=== PATIENT | female | born 2000 | race Caucasian/White ===

== ENCOUNTER 2022-08-24 11:43 | Emergency (ER) | payer OTHER ==
[~2022-08-24] VITALS: Ht 160 cm; Wt 70.3 kg
[2022-08-24 14:34] LABS: Source, Urine Clean Catch
[2022-08-24 14:37] LABS: BASOPHILS ABSOLUTE AUTO 0.04 K/mm3 (0.00-0.23); BASOPHILS PERCENT AUTO 1 % (0-2); EOSINOPHILS PERCENT AUTO 2 % (0-6); Hematocrit 38.9 % (33.0-51.0); Hemoglobin 13.1 g/dL (11.5-16.0); IMMATURE GRAN ABSOLUTE AUTO 0.02 K/mm3 (0.00-0.10); IMMATURE GRAN PERCENT AUTO 0 % (0-1); LYMPHOCYTES ABSOLUTE AUTO 2.16 K/mm3 (0.84-5.20); LYMPHOCYTES PERCENT AUTO 25 % (21-46); MONOCYTES ABSOLUTE AUTO 0.91 K/mm3 (0.16-1.47); MONOCYTES PERCENT AUTO 11 % (4-13); Mean Corpuscular HGB 30.7 pg (26.0-34.0); Mean Corpuscular HGB Conc 33.7 g/dL (31.5-36.5); Mean Corpuscular Volume 91 fL (80-100); Mean Platelet Volume 9.6 fL (9.1-12.4); NEUTROPHILS ABSOLUTE AUTO 5.34 K/mm3 (1.96-9.15); NEUTROPHILS PERCENT AUTO 62 % (41-73); Platelet Count 226 K/mm3 (150-400); RDW Coefficient Variation 11.9 % (11.7-14.2); RDW Standard Deviation 39.7 fL (35.1-46.3); Red Blood Cell Count 4.27 M/mm3 (3.80-5.20); White Blood Cell Count 8.67 K/mm3 (4.00-11.30)
[2022-08-24 14:41] LABS: Appearance, Urine Clear (Clear); Bilirubin, Urine Neg (Neg); Blood, Urine Neg (Neg); Color, Urine Yellow (P-Yellow); Glucose Qualitative, Urine Neg (Neg); Ketones, Urine Neg (Neg); Leukocyte Esterase, Urine 1+ (Neg); Nitrite, Urine Neg (Neg); Protein, Urine 2+ (Neg); Specific Gravity, Urine 1.015 (1.003-1.022); Urobilinogen, Urine NORM (Normal)
[2022-08-24 14:55] LABS: Renal Epithelial Few /hpf (0-Rare)
[2022-08-24 14:56] LABS: Mucus Light (0-Heavy); Red Blood Cells, Urine 0-2 /hpf (0-2)
[2022-08-24 14:57] LABS: Bacteria Few /hpf; Squamous Epithelial Cells Mod /hpf (Few)
[2022-08-24 15:04] LABS: Albumin/Globulin Ratio 1.3 (0.8-1.8); Bilirubin, Total 0.4 mg/dL (0.1-1.0); Bun/Creatinine Ratio 11.8 (12.0-20.0); Calcium, Blood 9.5 mg/dL (8.5-10.1); Creatinine, Blood 0.85 mg/dL (0.40-1.00); Globulin, Blood 3.1 g/dL (2.2-4.0); Total Protein, Blood 7.1 g/dL (6.4-8.2)
== END 2022-08-24 15:06 | disposition left against medical advice (07) ==
LOC: ER 11:43
PROVIDERS: Physician Assistant
DX: R10.31 Right lower quadrant pain (principal); Z53.21 Procedure and treatment not carried out due to patient leaving prior to being seen by health care provider
CPT/HCPCS: 36415; 76857; 80053; 81001; 83690; 84703; 85025; 87086; A9270

== ENCOUNTER → 2024-11-16 | Outpatient (CLI) | payer SELFPAY | END | disposition home or self-care (01) | LOC: LAB SHORT 10:34 → LAB 10:34 | DX: J02.9 Acute pharyngitis, unspecified (principal) | CPT/HCPCS: 87081 ==

== ENCOUNTER 2025-10-13 23:18 | Emergency (ER) | payer OTHER ==
[~2025-10-13] VITALS: Ht 160 cm; Wt 63.5 kg
[2025-10-13 23:30] VITALS: BP 116/82
== END 2025-10-14 00:42 | disposition left against medical advice (07) ==
LOC: ER 23:18
DX: M54.50 Low back pain, unspecified (principal); V69.9XXA Occupant (driver) (passenger) of heavy transport vehicle injured in unspecified traffic accident, initial encounter; Z53.21 Procedure and treatment not carried out due to patient leaving prior to being seen by health care provider
CPT/HCPCS: 72100; 73502

== ENCOUNTER 2025-10-15 16:00 | Emergency (ER) | payer OTHER ==
[~2025-10-15] VITALS: Ht 160 cm; Wt 63.0 kg
[2025-10-15 16:12] VITALS: BP 132/76
[2025-10-15] MEDS ORDERED: RX Prepack 6 Tabs Oxycodone 5mg UD ONE (21:05)
== END 2025-10-15 21:12 | disposition home or self-care (01) ==
LOC: ER 16:00
DX: S70.01XA Contusion of right hip, initial encounter (principal); S30.0XXA Contusion of lower back and pelvis, initial encounter; V03.00XA Pedestrian on foot injured in collision with car, pick-up truck or van in nontraffic accident, initial encounter
CPT/HCPCS: 99283; A9270